=== PATIENT | female | born 1945 | race Caucasian/White ===

== ENCOUNTER → 2017-08-01 | Outpatient (CLI) | payer OTHER, MEDICARE ==
[2017-08-01 14:22] LABS: BASOPHILS % (AUTO) 0.5 %; EOSINOPHILS # (AUTO) 0.2 10^3/uL (0.0-0.7); EOSINOPHILS % (AUTO) 2.4 %; HCT - HEMATOCRIT 42.6 % (37.0-47.0); HGB - HEMOGLOBIN 14.2 g/dL (12.0-16.0); LYMPHOCYTES # (AUTO) 2.2 10^3/uL (1.5-3.5); LYMPHOCYTES % (AUTO) 31.4 %; MEAN CORPUSCULAR HEMOGLOBIN 29.9 pg (27.0-31.0); MEAN CORPUSCULAR HGB CONC 33.3 g/dL (32.0-36.0); MEAN CORPUSCULAR VOLUME 89.7 fL (81.0-99.0); MEAN PLATELET VOLUME 10.5 fL (7.9-10.8); MONOCYTES # (AUTO) 0.5 10^3/uL (0.0-1.0); MONOCYTES % (AUTO) 6.5 %; NEUTROPHILS # (AUTO) 4.2 10^3/uL (1.5-6.6); NEUTROPHILS % (AUTO) 59.2 %; NUCLEATED RED BLOOD CELLS AUTO 0.1 /100WBC; RED BLOOD COUNT 4.75 10^6/uL (4.20-5.40); RED CELL DISTRIBUTION WIDTH 14.1 % (12.0-15.0); UNCORRECTED WHITE BLOOD COUNT 7.1 x10^3/uL; WHITE BLOOD COUNT 7.1 x10^3/uL (4.8-10.8)
[2017-08-01 14:44] LABS: ALBUMIN/GLOBULIN RATIO 1.3 (1.0-2.2); BILIRUBIN,TOTAL 0.8 mg/dL (0.2-1.0); BUN - BLOOD UREA NITROGEN 11 mg/dL (6-20); CALCIUM 9.5 mg/dL (8.5-10.3); CARBON DIOXIDE - CO2 24 mmol/L (21-32); CHLORIDE 107 mmol/L (101-111); CHOL/HDL RATIO 3.9 (<4.4); CHOLESTEROL 147 mg/dL; CREATININE 0.7 mg/dL (0.4-1.0); GFR - MDRD 83 (>89); GLUCOSE 172 mg/dL (70-100); HDL CHOLESTEROL 38 mg/dL; SODIUM 138 mmol/L (135-145); TOTAL PROTEIN 7.7 g/dL (6.7-8.2); TRIGLYCERIDES 164 mg/dL; VLDL CHOLESTEROL 33 mg/dL
== END ==
LOC: LAB.WCP 10:35
PROVIDERS: ATTEND Physician Assistant Medical
DX: I10 Essential (primary) hypertension (principal); Z51.81 Encounter for therapeutic drug level monitoring; Z79.899 Other long term (current) drug therapy; E78.00 Pure hypercholesterolemia, unspecified
CPT/HCPCS: 36415; 80053; 80061; 84443; 85025

== ENCOUNTER 2017-12-16 08:00 | Outpatient (CLI) | payer OTHER ==
[2017-12-16 12:33] LABS: BASOPHILS % (AUTO) 0.6 %; EOSINOPHILS # (AUTO) 0.2 10^3/uL (0.0-0.7); EOSINOPHILS % (AUTO) 3.6 %; HGB - HEMOGLOBIN 13.8 g/dL (12.0-16.0); LYMPHOCYTES # (AUTO) 2.3 10^3/uL (1.5-3.5); LYMPHOCYTES % (AUTO) 36.4 %; MEAN CORPUSCULAR HEMOGLOBIN 30.1 pg (27.0-31.0); MEAN CORPUSCULAR HGB CONC 33.4 g/dL (32.0-36.0); MEAN PLATELET VOLUME 10.2 fL (7.9-10.8); MONOCYTES # (AUTO) 0.6 10^3/uL (0.0-1.0); MONOCYTES % (AUTO) 8.8 %; NEUTROPHILS # (AUTO) 3.2 10^3/uL (1.5-6.6); NEUTROPHILS % (AUTO) 50.6 %; PLT - PLATELET COUNT 213 10^3/uL (130-450); RED BLOOD COUNT 4.58 10^6/uL (4.20-5.40); RED CELL DISTRIBUTION WIDTH 13.6 % (12.0-15.0); WHITE BLOOD COUNT 6.4 x10^3/uL (4.8-10.8)
[2017-12-16 13:03] LABS: ALBUMIN 4.6 g/dL (3.2-5.5); ALBUMIN/GLOBULIN RATIO 1.6 (1.0-2.2); ALKALINE PHOSPHATASE 62 IU/L (42-121); ALT ALANINE AMINOTRANSFERASE 31 IU/L (10-60); AST ASPARTATE AMINOTRANSFERASE 22 IU/L (10-42); BILIRUBIN,TOTAL 0.9 mg/dL (0.2-1.0); BUN - BLOOD UREA NITROGEN 17 mg/dL (6-20); CARBON DIOXIDE - CO2 25 mmol/L (21-32); CHLORIDE 107 mmol/L (101-111); CHOLESTEROL 156 mg/dL; CREATININE 0.7 mg/dL (0.4-1.0); GFR - MDRD 83 (>89); GLUCOSE 117 mg/dL (70-100); HDL CHOLESTEROL 39 mg/dL; LDL CHOLESTEROL,CALCULATED 90 mg/dL; LDL/HDL RATIO 2.3 (<4.4); SODIUM 136 mmol/L (135-145); TOTAL PROTEIN 7.4 g/dL (6.7-8.2); VLDL CHOLESTEROL 27 mg/dL
== END 2017-12-16 08:01 | disposition home or self-care (01) ==
LOC: LAB.WCP 08:00
PROVIDERS: ATTEND Physician Assistant Medical
DX: Z00.00 Encounter for general adult medical examination without abnormal findings (principal); I10 Essential (primary) hypertension; Z51.81 Encounter for therapeutic drug level monitoring; Z79.899 Other long term (current) drug therapy
CPT/HCPCS: 36415; 80053; 80061; 83721; 84443; 85025

== ENCOUNTER 2018-12-18 09:32 | Outpatient (CLI) | payer OTHER ==
[2018-12-18 14:02] LABS: CHOL/HDL RATIO 4.1 (<4.4); CHOLESTEROL 178 mg/dL; HDL CHOLESTEROL 43 mg/dL; LDL CHOLESTEROL,CALCULATED 98 mg/dL; LDL/HDL RATIO 2.3 (<4.4); VLDL CHOLESTEROL 37 mg/dL
== END 2018-12-18 23:59 | disposition home or self-care (01) ==
LOC: LAB.WCP 09:32
PROVIDERS: ATTEND Physician Assistant Medical
DX: E78.00 Pure hypercholesterolemia, unspecified (principal)
CPT/HCPCS: 36415; 80061; 83721

== ENCOUNTER 2019-01-06 16:27 | Outpatient (CLI) | payer MEDICARE, OTHER ==
[2019-01-06] MEDS ORDERED: GADOBUTROL 10 MMOL/10 ML VIAL ONE (16:47)
[2019-01-06] MEDS ORDERED: GADOBUTROL 10 MMOL/10 ML VIAL IVP ONE (18:58)
--- NOTE | 2019-01-07 09:13 | MRI Report ---
Reason: HEADACHE Procedure Date: 01/06/2019 Accession Number: [id number] / [id number] Procedure: MRI - Brain W/WO CPT Code: FULL RESULT: EXAM: MRI BRAIN WITHOUT AND WITH CONTRAST EXAM DATE: 01/06/2019 05:48 PM. CLINICAL HISTORY: Headache. COMPARISON: CT scan of the head 08/02/2010 (report not provided). TECHNIQUE: Multiplanar, multisequence T1-weighted and fluid-sensitive MR sequences of the brain were performed. Sequences optimized for routine evaluation. Other: None. IV Contrast: 8.5 cc Gadavist. FINDINGS: Brain Volume: Normal for age. Parenchyma: No acute hemorrhage, mass, or infarct. Minimal confluent periventricular with mild scattered punctate deep and subcortical white matter T2/FLAIR bright signal is seen throughout the cerebral hemispheres and to a lesser extent brainstem. No cortical signal abnormality. No abnormal enhancement. Ventricles/Cisterns: No hydrocephalus. No abnormal extra-axial fluid collection or hemorrhage. Orbits: Symmetric and unremarkable. Sella Turcica: Mild fullness to the pituitary gland is seen. Superior convexity to the diaphragma sella is noted. A small, 2.5 mm, nodular focus is seen anteriorly in the pituitary gland near the midline. This demonstrates increased T2 signal with non-enhancement and hypointensity on postcontrast T1-weighted series. The pituitary stalk is midline. The cavernous sinuses, suprasellar cistern, and optic chiasm are unremarkable. IAC: Symmetric and unremarkable. Vasculature: Normal signal flow void is seen in the major arterial structures at the skull base. The dural sinuses are patent and enhance normally. Sinuses: No acute sinus disease. Bones: No focal pathologic appearing marrow signal changes. Other: None. IMPRESSION: 1. No acute intracranial abnormality. No acute infarct, mass, hemorrhage, or abnormal enhancement. 2. Mild white matter T2/FLAIR bright signal noted in the cerebral hemispheres and brainstem. This is nonspecific. This can be seen secondary to small vessel ischemic change. 3. Note is made of fullness to the pituitary gland with superior convexity to the diaphragma sella. 2.5 mm focus of signal abnormality in the anterior inferior pituitary gland. This demonstrates increased T2 signal and hypointense non-enhancement on post gadolinium T1 series. This could represent a small cyst or microadenoma. RADIA
== END 2019-01-06 16:28 | disposition home or self-care (01) ==
LOC: DI 16:27
PROVIDERS: ATTEND Physician Assistant Medical
DX: R51 Headache (principal)
CPT/HCPCS: 70553; A9585

== ENCOUNTER 2020-06-22 13:41 | Outpatient (CLI) | payer OTHER ==
--- NOTE | 2020-06-22 16:32 | MRI Report ---
PROCEDURE: Shoulder RT W/O INDICATIONS: ADHESIVE CAPSULITIS OF RT SHOULDER TECHNIQUE: Noncontrast oblique coronal T2 fast spin echo with fat saturation, oblique sagittal T1 spin echo and T2 fast spin echo with fat saturation, axial T1 spin echo and T2 fast spin echo with fat saturation t hrough the shoulder. COMPARISON: None. FINDINGS: Image quality: Motion degraded examination.. Rotator cuff: Full-thickness tear of the anterior supraspinatus tendon measuring approximately 1 cm in AP dimension as seen on sagittal pulse sequences. Infraspinatus tendinopathy is present, with low-grade articular and bursal surface fraying. The teres minor appears intact. Subscapularis tendinopathy and thickenin g, with partial-thickness bursal sided tear. Borderline atrophy of the supraspinatus muscle. Fatty in filtration of the supraspinatus infraspinatus and teres minor muscles. Bones and bursae: No bone marrow contusions or fractures. Moderate hypertrophic acromioclavicular joint degeneration. Glenohumeral joint degeneration also not ed. There is a joint effusion. The acromion demonstrates conventional anatomy, without an os acromiale. Capsule and soft tissues: Labrum: Markedly blunted appearance of the posterior labrum. Posterior subluxed appearance of the hum eral head relative to the glenoid suggestive of microinstability. Long head biceps tendinopathy, without rupture. Obliteration of the subcoracoid fat. The coracohumeral ligament is normal in thickness. IMPRESSION: Full-thickness tear involving the anterior fibers of the supraspinatus tendon. Infraspinatus tendinopathy with low-grade articular and bursal surface fraying. Subscapularis tendinopathy with partial-thickness bursal sided tear. Borderline atrophy of the supraspinatus muscle Chronic appearing posterior labral tear. Posterior subluxed appearance of the humeral head relative t o the glenoid suggestive of microinstability. Joint effusion Reviewed by: Isreal Bradshaw MD on 06/22/2020 4:30 PM PDT Approved by: Isreal Bradshaw MD on 06/22/2020 4:30 PM PDT Station ID: [id number]
== END 2020-06-22 13:42 | disposition home or self-care (01) ==
LOC: DI 13:41
PROVIDERS: ATTEND Physician Assistant Medical
DX: M75.01 Adhesive capsulitis of right shoulder (principal); M75.101 Unspecified rotator cuff tear or rupture of right shoulder, not specified as traumatic; S43.491A Other sprain of right shoulder joint, initial encounter; M75.81 Other shoulder lesions, right shoulder

== ENCOUNTER 2020-10-09 11:11 | Outpatient (CLI) | payer OTHER ==
--- NOTE | 2020-10-09 16:41 | XRAY Report ---
PROCEDURE: Shoulder 3 View RT INDICATIONS: ADHESIVE CAPSULITIS OF R SHOULDER TECHNIQUE: 3 views of the shoulder were acquired. COMPARISON: None. FINDINGS: Bones: No fractures or dislocations. No suspicious bony lesions. Visualized ribs appear intact. S evere acromioclavicular degenerative narrowing. Humeral head is high riding. Soft tissues: No suspicious soft tissue calcifications. IMPRESSION: 1. Severe acromioclavicular degenerative narrowing. 2. High riding humeral head which can be seen with rotator cuff pathology. Reviewed by: Loretta Keenan MD on 10/09/2020 4:40 PM PST Approved by: Loretta Keenan MD on 10/09/2020 4:40 PM PST Station ID: [id number]
== END 2020-10-09 23:59 | disposition home or self-care (01) ==
LOC: DI.N 11:11
PROVIDERS: ATTEND Physician Assistant
DX: M75.01 Adhesive capsulitis of right shoulder (principal); M19.011 Primary osteoarthritis, right shoulder

== ENCOUNTER 2021-04-05 13:15 | Outpatient (CLI) | payer OTHER ==
--- NOTE | 2021-04-05 15:40 | XRAY Report ---
PROCEDURE: Foot 3 View LT INDICATIONS: FOOT PAIN, LEFT TECHNIQUE: 3 views of the foot were acquired. COMPARISON: None FINDINGS: Bones: No fractures or dislocations. No suspicious bony lesions. Periarticular osteophyte formatio n at the first metatarsophalangeal joint as well as the interphalangeal joints of the digits. Calcane al spurring. Soft tissues: No tibiotalar joint effusion. Achilles tendon demonstrates calcification/ossification at the calcaneal insertion site. IMPRESSION: 1. Osteoarthritis. 2. Findings suggestive of chronic Achilles tendinopathy. This could be further assessed with MRI, if clinically indicated. Reviewed by: Tuyet Murray MD on 04/05/2021 3:38 PM PDT Approved by: Tuyet Murray MD on 04/05/2021 3:38 PM PDT Station ID: [id number]
== END 2021-04-05 13:16 | disposition home or self-care (01) ==
LOC: DI.N 13:15
PROVIDERS: ATTEND Physician Assistant Medical
DX: M79.672 Pain in left foot (principal); M19.072 Primary osteoarthritis, left ankle and foot

== ENCOUNTER 2022-03-13 13:55 | Outpatient (CLI) | payer OTHER ==
[2022-03-13 17:48] LABS: BASOPHILS % (AUTO) 0.5 %; EOSINOPHILS # (AUTO) 0.2 10^3/uL (0.0-0.7); EOSINOPHILS % (AUTO) 2.4 %; HCT - HEMATOCRIT 45.1 % (37.0-47.0); HGB - HEMOGLOBIN 14.5 g/dL (12.0-16.0); LYMPHOCYTES # (AUTO) 2.6 10^3/uL (1.5-3.5); LYMPHOCYTES % (AUTO) 33.5 %; MEAN CORPUSCULAR HGB CONC 32.2 g/dL (32.0-36.0); MEAN CORPUSCULAR VOLUME 93.4 fL (81.0-99.0); MEAN PLATELET VOLUME 12.3 fL (7.9-10.8); MONOCYTES # (AUTO) 0.6 10^3/uL (0.0-1.0); MONOCYTES % (AUTO) 7.9 %; NEUTROPHILS # (AUTO) 4.3 10^3/uL (1.5-6.6); NEUTROPHILS % (AUTO) 55.4 %; PLT - PLATELET COUNT 271 10^3/uL (130-450); RED BLOOD COUNT 4.83 10^6/uL (4.20-5.40); RED CELL DISTRIBUTION WIDTH 13.3 % (12.0-15.0); WHITE BLOOD COUNT 7.8 x10^3/uL (4.8-10.8)
[2022-03-13 18:10] LABS: ALBUMIN 4.6 g/dL (3.2-5.5); ALBUMIN/GLOBULIN RATIO 1.4 (1.0-2.2); ALKALINE PHOSPHATASE 70 IU/L (42-121); ALT ALANINE AMINOTRANSFERASE 37 IU/L (10-60); AST ASPARTATE AMINOTRANSFERASE 28 IU/L (10-42); BILIRUBIN,TOTAL 0.5 mg/dL (0.2-1.0); BUN - BLOOD UREA NITROGEN 13 mg/dL (6-20); CALCIUM 9.8 mg/dL (8.5-10.3); CARBON DIOXIDE - CO2 26 mmol/L (21-32); CHLORIDE 104 mmol/L (101-111); CHOL/HDL RATIO 3.8 (<4.4); CHOLESTEROL 152 mg/dL; CREATININE 0.9 mg/dL (0.4-1.0); GFR - MDRD 61 (>89); GLUCOSE 112 mg/dL (70-100); HDL CHOLESTEROL 40 mg/dL; LDL CHOLESTEROL,CALCULATED 69 mg/dL; LDL/HDL RATIO 1.7 (<4.4); POTASSIUM 4.1 mmol/L (3.5-5.0); SODIUM 140 mmol/L (135-145); TOTAL PROTEIN 7.9 g/dL (6.7-8.2); TRIGLYCERIDES 214 mg/dL; VLDL CHOLESTEROL 43 mg/dL
== END 2022-03-13 13:56 | disposition home or self-care (01) ==
LOC: LAB.N 13:55
PROVIDERS: ATTEND Physician Assistant Medical
DX: E78.00 Pure hypercholesterolemia, unspecified (principal); I10 Essential (primary) hypertension
CPT/HCPCS: 36415; 80053; 80061; 83721; 85025

== ENCOUNTER 2023-05-17 09:47 | Outpatient (CLI) | payer OTHER, MEDICARE ==
[2023-05-17 18:47] LABS: BASOPHILS # (AUTO) 0.1 10^3/uL (0.0-0.1); BASOPHILS % (AUTO) 0.7 %; EOSINOPHILS # (AUTO) 0.2 10^3/uL (0.0-0.7); EOSINOPHILS % (AUTO) 2.2 %; HCT - HEMATOCRIT 47.9 % (37.0-47.0); HGB - HEMOGLOBIN 14.7 g/dL (12.0-16.0); LYMPHOCYTES # (AUTO) 2.1 10^3/uL (1.5-3.5); LYMPHOCYTES % (AUTO) 29.3 %; MEAN CORPUSCULAR HEMOGLOBIN 29.3 pg (27.0-31.0); MEAN CORPUSCULAR HGB CONC 30.7 g/dL (32.0-36.0); MEAN CORPUSCULAR VOLUME 95.4 fL (81.0-99.0); MONOCYTES # (AUTO) 0.6 10^3/uL (0.0-1.0); MONOCYTES % (AUTO) 8.4 %; NEUTROPHILS # (AUTO) 4.3 10^3/uL (1.5-6.6); NEUTROPHILS % (AUTO) 59.3 %; PLT - PLATELET COUNT 261 10^3/uL (130-450); RED BLOOD COUNT 5.02 10^6/uL (4.20-5.40); RED CELL DISTRIBUTION WIDTH 13.7 % (12.0-15.0); WHITE BLOOD COUNT 7.3 x10^3/uL (4.8-10.8)
[2023-05-17 19:09] LABS: ALBUMIN 4.2 g/dL (3.2-5.5); ALBUMIN/GLOBULIN RATIO 1.2 (1.0-2.2); ALKALINE PHOSPHATASE 68 IU/L (42-121); ALT ALANINE AMINOTRANSFERASE 53 IU/L (10-60); AST ASPARTATE AMINOTRANSFERASE 35 IU/L (10-42); BILIRUBIN,TOTAL 0.8 mg/dL (0.2-1.0); BUN - BLOOD UREA NITROGEN 13 mg/dL (6-20); CALCIUM 9.5 mg/dL (8.5-10.3); CARBON DIOXIDE - CO2 25 mmol/L (21-32); CHLORIDE 109 mmol/L (101-111); CHOL/HDL RATIO 3.6 (<4.4); CHOLESTEROL 171 mg/dL; CREATININE 0.7 mg/dL (0.4-1.0); GFR - MDRD 82 (>89); GLUCOSE 106 mg/dL (70-100); HDL CHOLESTEROL 47 mg/dL; LDL CHOLESTEROL,CALCULATED 87 mg/dL; LDL/HDL RATIO 1.9 (<4.4); POTASSIUM 4.8 mmol/L (3.5-5.0); SODIUM 140 mmol/L (135-145); TOTAL PROTEIN 7.8 g/dL (6.7-8.2); TRIGLYCERIDES 186 mg/dL; VLDL CHOLESTEROL 37 mg/dL
[2023-05-17 19:16] LABS: THYROID STIMULATING HORMONE 3.09 uIU/mL (0.34-5.60)
== END 2023-05-17 09:48 | disposition home or self-care (01) ==
LOC: LAB.N 09:47
PROVIDERS: ATTEND Physician Assistant Medical
DX: I10 Essential (primary) hypertension (principal); Z13.220 Encounter for screening for lipoid disorders; Z13.29 Encounter for screening for other suspected endocrine disorder
CPT/HCPCS: 36415; 80053; 80061; 83721; 84443; 85025